=== PATIENT | male | born 1975 | race African-American/Black ===

== ENCOUNTER 2021-11-04 21:53 | Emergency (ER) | payer MEDICARE ==
[~2021-11-04] VITALS: Ht 180.3 cm; Wt 136.3 kg
--- NOTE | 2021-11-04 22:07 | PHYS DOC ---
Adult General Chief Complaint Chief Complaint: CHEST PAIN HPI HPI Patient is a 46-year-old male, morbidly obese with hypertension on metoprolol, hydrochlorothiazide and amlodipine who presents with acute onset chest pain about 15 to 20 minutes before coming into the emergency department centralized, heavy pressure, with no radiation. States he is never had anything like this before. States he is taking all his medications. Denies any recent travels, traumas, illnesses, fevers. Endorses dyspnea on exertion but no orthopnea, PND or edema. Review of Systems Review of Systems Review of systems otherwise unremarkable except noted in HPI Physical Exam Physical Exam Constitutional: Well developed, well nourished, no acute distress, non-toxic appearance. [] HENT: Normocephalic, atraumatic, bilateral external ears normal, oropharynx moist, no oral exudates, nose normal. [] Eyes: conjunctiva normal, no discharge. [] Neck: Normal range of motion, no tenderness, supple, no stridor. [] Cardiovascular:Heart rate regular rhythm, no murmur [] Lungs & Thorax: Bilateral breath sounds clear to auscultation [] Abdomen: soft, no tenderness, no masses, no pulsatile masses. [] Skin: Warm, dry, no erythema, no rash. [] Back: No tenderness, no CVA tenderness. [] Extremities: No tenderness, no cyanosis, no clubbing, ROM intact, no edema. [] Neurologic: Alert and oriented X 3, normal motor function, normal sensory function, cranial nerves intact, able to sit, stand and walk without issue no focal deficits noted. [] Psychologic: Affect normal, judgement normal, mood normal. [] EKG EKG [] Radiology/Procedures Radiology/Procedures [] Heart Score C/O Chest Pain: Yes HEART Score for Chest Pain: HEART Score for Chest Pain Response (Comments) Value History Highly Suspicious 2 Total 2 Risk Factors: Risk Factors: DM, Current or recent (<one month) smoker, HTN, HLP, family history of CAD, obesity. Risk Scores: Risk Factors: DM, Current or recent (<one month) smoker, HTN, HLP, family history of CAD, obesity. Course & Med Decision Making Course & Med Decision Making Patient is a 46-year-old male with hypertension who presents with chest pain which started 15 to 30 minutes before coming to the emergency department Vital signs notable for hypertension. Physical exam noted above. EKG with a heart rate of 96, QRS of 96, QTc of 463, ST elevations in 2 3 and aVF with depressions in 1 and aVL. Initially STEMI activated. Given aspirin. Heparin drip ordered to give at cardiology request and when coags returned. Discussed patient with Dr. Fernandez the certified substance abuse counselor at [facility] who agreed and asked to activate the STEMI team. Critical care time 30 minutes [] Dragon Disclaimer Dragon Disclaimer This electronic medical record was generated, in whole or in part, using a voice recognition dictation system. Departure Departure: Impression: Primary Impression: STEMI (ST elevation myocardial infarction) Disposition: 02 SHORT TERM HOSPITAL Admitting Physician: Other Condition: STABLE Referrals: PCP,UNKNOWN (PCP) MAU VO MD Nov 04, 2021 22:07
[2021-11-04] MEDS ORDERED: ASPIRIN CHEWABLE 81 MG TABLET. ONE (22:12)
[2021-11-04] MEDS ORDERED: HEPARIN 25,000UTS/250ML PREMIX 250 ML IV PRN (22:15)
[2021-11-04] MEDS ORDERED: ASPIRIN CHEWABLE 81 MG TABLET. PO ONE (22:15)
[2021-11-04] MEDS ORDERED: NITROGLYCERIN SUBLINGUAL 0.4 MG BOTTLE OF 25. SL PRN (22:15)
[2021-11-04] MEDS ORDERED: HEPARIN for IV BOLUS 10,000 UNIT/10 ML VIAL. IV ONE (22:15)
[2021-11-04] MEDS ORDERED: HEPARIN for IV BOLUS 10,000 UNIT/10 ML VIAL. IV PRN (22:15)
[2021-11-04 22:24] LABS: BASO # 0.1 x10^3/uL (0.0-0.2); BASO % 1 % (0-3); EOS # 0.2 x10^3/uL (0.0-0.7); EOS % 2 % (0-3); HEMOGLOBIN 14.5 g/dL (13.0-17.5); LYMPH # 3.8 x10^3/uL (1.0-4.8); LYMPH % 37 % (24-48); MEAN CORPUSCULAR HEMOGLOBIN 30 pg (25-35); MEAN CORPUSCULAR HGB CONC 33 g/dL (31-37); MEAN CORPUSCULAR VOLUME 93 fL (79-100); MONO # 0.8 x10^3/uL (0.0-1.1); MONO % 7 % (0-9); NEUT # 5.5 x10^3uL (1.8-7.7); NEUT % 53 % (31-73); PLATELET COUNT 240 x10^3/uL (140-400); RED BLOOD COUNT 4.75 x10^6/uL (4.30-5.70); WHITE BLOOD COUNT 10.4 x10^3/uL (4.0-11.0)
[2021-11-04 22:33] LABS: CALCIUM 8.7 mg/dL (8.5-10.1); CREATININE 1.2 mg/dL (0.7-1.3); GFR 65.2; POTASSIUM 3.3 mmol/L (3.5-5.1)
[2021-11-04 22:39] LABS: ALBUMIN 3.9 g/dL (3.4-5.0); ALBUMIN/GLOBULIN RATIO 0.9 (1.0-1.7); MAGNESIUM 2.5 mg/dL (1.8-2.4); TOTAL BILIRUBIN 0.3 mg/dL (0.2-1.0); TOTAL PROTEIN 8.1 g/dL (6.4-8.2)
[2021-11-04 22:47] VITALS: BP 165/85
--- NOTE | 2021-11-04 22:55 | RAD ---
Exam: Chest one view INDICATION: Chest pain TECHNIQUE: Frontal view of the chest Comparisons: None FINDINGS: The cardiomediastinal silhouette and pulmonary vessels are within normal limits. The lung and pleural spaces are clear. IMPRESSION: No acute cardiopulmonary process. Electronically signed by: Rigoberto Harris MD (11/04/2021 10:52 PM) GURINDER
--- NOTE | 2021-11-05 05:57 | EKG ---
[address] [address] Test Date: 2021-11-04 Test Time: 22:00:48 Pat Name: ANDREIA MCNEILL Department: Room: Gender: M Search Marketing Coordinator: : 1975 Requested By: MAU VO Order Number: [id number] Reading MD: Measurements Intervals [place] Rate: 86 P: 54 DE: 170 QRS: 21 QRSD: 96 T: 92 QT: 384 QTc: 463 Interpretive Statements SINUS RHYTHM LEFT ATRIAL ABNORMALITY CONSIDER RIGHT VENTRICULAR HYPERTROPHY QRS(T) CONTOUR ABNORMALITY CONSISTENT WITH INFERIOR INFARCT POSSIBLY RECENT ST ABNORMALITY, POSSIBLE HIGH LATERAL SUBENDOCARDIAL INJURY ST-T ELEVATION, CONSIDER ACUTE INFERIOR INFARCT ABNORMAL ECG RI6.02 No previous ECG available for comparison
== END 2021-11-04 23:12 | disposition short-term general hospital (02) ==
LOC: ER 21:53
DX: I21.3 ST elevation (STEMI) myocardial infarction of unspecified site (principal); I10 Essential (primary) hypertension; E66.01 Morbid (severe) obesity due to excess calories; Z68.41 Body mass index [BMI] 40.0-44.9, adult
CPT/HCPCS: 36415; 71045; 80053; 83735; 84484; 85025; 85379; 85610; 85730; 96374; 99291; J1644